=== PATIENT | female | born 1960 | race Caucasian/White ===

== ENCOUNTER 2020-08-01 15:13 | Emergency (ER) | payer OTHER, SELFPAY ==
[2020-08-01 15:34] VITALS: BP 143/93; PULSE 73; RESP 18; TEMP 36.8; O2SAT 99
--- NOTE | 2020-08-01 15:51 | PC.NURSE ---
pt states her last fever was yesterday and isn't coughing at this time. denies shortness of breath.
--- NOTE | 2020-08-01 16:00 | ED_ITS ---
HPI - URI/Sore Throat General Chief Complaint: Upper Respiratory Symptoms Stated Complaint: positive COVID, has sarcoid, and other auto immu Time Seen by Provider: 08/01/20 16:00 Source: patient Mode of arrival: Ambulatory Limitations: no limitations History of Present Illness HPI Narrative: Patient is a 60-year-old female with history of sarcoidosis who presents as positive COVID patient. She states that she was urged by her children to come to the ER for evaluation. She states that she is on day 5 of her symptoms. She says the fever has. She actually is having improvement of symptoms. She is using an inhaler to help her breathe which she says is working well. She has a home pulse oximeter which he has been monitoring her oxygen levels with. She is currently 99% on room air. Her children are worried for her and they want her to have medicine. She is currently taking vitamin D supplement and a daily aspirin. She states that she does not feel that she needs to be here in the emergency department will want to appease her children MD Complaint: fever Related Data Home Medications Medication Instructions Recorded Confirmed asmathax INHALATION 07/17/18 07/17/18 cyclosporine 0.05 % eye drops in a EYE-BOTH each 07/17/18 07/17/18 dropperette metoprolol succinate 25 mg 25 mg PO DAILY 07/17/18 07/17/18 tablet,extended release 24 hr simvastatin PO 07/17/18 07/17/18 Allergies Allergy/AdvReac Type Severity Reaction Status Date / Time bacitracin Allergy Unknown Verified 07/17/18 16:45 [From NEOSPORIN ([id number])] neomycin Allergy Unknown Verified 07/17/18 16:45 [From NEOSPORIN ([id number])] polymyxin B Allergy Unknown Verified 07/17/18 16:45 [From NEOSPORIN ([id number])] Review of Systems Review of Systems Narrative: GENERAL: Denies chills, fatigue, malaise, fever, sweats, travel HEENT: Denies sinus pain, ear pain, sore throat, difficulty swallowing, neck pain RESPIRATORY: See HPI CARDIOVASCULAR: Denies chest pain, palpitations, orthopnea, edema GASTROINTESTINAL: Denies nausea, vomiting, abdominal pain, diarrhea, constipation, melena. : Denies dysuria, frequency, incontinence, hematuria, urinary retention, flank pain. MUSCULOSKELETAL: Denies weakness, joint pain, or bony pain SKIN: No rash, no erythema, no pruritus NEUROLOGIC: Denies weakness, dizziness, headache, numbness, change in speech, confusion PSYCHIATRIC: No concerning psychosocial issues. 12 point review of systems is negative except for those stated above and HPI Patient History Social History Smoking Status: Never smoker alcohol intake: current (occasionally) Smoking Status: Never smoker Substance Use Type: does not use Exam Initial Vital Signs Initial Vital Signs: Vital Signs Temperature 98.3 F 08/01/20 15:34 Pulse Rate 73 08/01/20 15:34 Respiratory Rate 18 08/01/20 15:34 Blood Pressure 143/93 H 08/01/20 15:34 Pulse Oximetry 99 08/01/20 15:34 GENERAL: Well-appearing, well-nourished and in no acute distress. HEENT: Head atraumatic,EOMI, pupils reactive, face symmetric, moist mucous mem branes CARDIOVASCULAR: Regular rate and rhythm without murmurs, rubs or gallops. RESPIRATORY: Breath sounds equal bilaterally, no wheezes rales or rhonchi. EXTREMITIES: Normal range of motion, no clubbing or edema. Neurovascularly intact NEUROLOGICAL: Alert and oriented x4.Normal gait and speech SKIN: Warm, dry, no laceration, no petechiae, no rashes or lesions. Course Vital Signs Vital signs: Vital Signs - 8 hr 08/01/20 15:34 Temperature 98.3 F Pulse Rate 73 Respiratory Rate 18 Blood Pressure 143/93 H Pulse Oximetry 99 MDM - URI/Sore Throat MDM Narrative Medical decision making narrative: The patient is overall feeling well her O2 is 99%. She is on day 5. She does have sarcoidosis but but the inhaler seems to help whenever she has any shortness of. She has at all the things at home including home pulse oximeter and she has been using it. At this time she seems to be well informed and following the instructions. She understands when to return to the ED he and I trust that she well Discharge Plan Departure Patient Disposition: Home Clinical Impression: COVID-19 Instructions: DI for COVID-19 (Suspected or Confirmed ) Activity Restrictions/Additional Instructions: *You have been diagnosed with COVID-19 *What to do: At this time no indication to stay in the hospital. Please continue to monitor your home oxygen with a pulse ox. Please use spots checking sometimes oxygen levels drop without You knowing *Continue to take medications as directed Continue supplements of vitamin-D and aspirin *Follow up with your primary care provider in 2-3 days *Return to ER if you should have oxygen levels less than 88%, increase no shortness of breath, or any new, worsening or concerning symptoms CDC Guidelines for home isolation: - Stay away from others - Limit contact with pets and animals: If you must care for a pet, wash your hands before and after interacting with them - Wear a mask if you are sick - Cover your mouth and nose with a tissue when you cough or sneeze. Dispose of tissues in a lined trash can and wash your hands immediately with soap and water for at least 20 seconds. If soap and water are not available, clean hands with alcohol-based hand pathology secretary that contains at least 60% alcohol. - Clean your hands often with soap and water for at least 20 seconds - Avoid touching your eyes, nose and mouth with unwashed hands - Do not share dishes, drinking glasses, cups, eating utensils, towels, or bedding with other people in your home. After using these items, wash them thoroughly with soap and water or put in the head banquet waiter/waitress. - Clean high-touch surfaces in your isolation area (?sick room? and bathroom) every day; let a caregiver clean and disinfect high-touch surfaces in other areas of the home. Clean the area or item with soap and water or another detergent if it is dirty. Then, use a household disinfectant. Seek medical attention, but call first: - Seek medical care right away if your illness is worsening (for example, if you have difficulty breathing). - Call your doctor before going in: Before going to the doctor?s office or emergency room, call ahead and tell them your symptoms. They will tell you what to do. - If possible, put on a facemask before you enter the building. If you can?t put on a facemask, try to keep a safe distance from other people (at least 6 feet away). This will help protect the people in the office or waiting room. - Follow care instructions from your healthcare provider and local health department: Your local health authorities will give instructions on checking your symptoms and reporting information. Emergency warning signs for COVID-19: - Difficulty breathing or shortness of breath - Persistent pain or pressure in the chest - New confusion or inability to arouse - Bluish lips or face Prescriptions: No Action metoprolol succinate [Toprol XL] 25 mg tablet extended release 24 hr 25 mg PO DAILY RF: 0 simvastatin PO RF: 0 cyclosporine [Restasis] 0.05 % dropperette EYE-BOTH RF: 0 asmathax INHALATION RF: 0
== END 2020-08-01 16:11 | disposition home or self-care (01) ==
PROVIDERS: Emergency Provider Emergency Medicine
DX: U07.1 COVID-19 (principal); D86.9 Sarcoidosis, unspecified
CPT/HCPCS: 99281

== ENCOUNTER → 2021-07-26 17:52 | Outpatient (CLI) | payer OTHER, SELFPAY ==
[2021-07-26 18:52] LABS: COVID19 -Nasal RAPID Negative (Negative)
== END ==
PROVIDERS: Referring Provider Physician Assistant; Visit Provider Physician Assistant
DX: Z20.822 Contact with and (suspected) exposure to COVID-19 (principal)
CPT/HCPCS: 87635

== ENCOUNTER 2025-01-16 12:06 | Emergency (ER) | payer OTHER, SELFPAY ==
[2025-01-16 12:21] VITALS: BP 135/81; PULSE 81; RESP 18; TEMP 37; O2SAT 98; BMI 31.6
--- NOTE | 2025-01-16 16:40 | ED.WOUNDLAC ---
HPI - Wound/Laceration General Chief Complaint: Wound/Laceration Stated Complaint: right hand laceration Time Seen by Provider: 01/16/25 16:26 Source: patient Mode of arrival: Ambulatory History of Present Illness HPI narrative: 64-year-old female presents with laceration to right hand after accidentally stabbed herself with a steak knife. Tetanus is not recently updated, she thinks has been greater than 5 years. No paresthesias. Has a slight amount of pain but bleeding has stopped. Affects the webspace between the 1st and 2nd fingers. No other complaints or concerns. Related Data Home Medications ?Medication ?Instructions ?Recorded ?Confirmed asmathax inhalation 07/17/18 07/26/21 cyclosporine 0.05 % eye drops in a EYE-BOTH 07/17/18 07/26/21 dropperette (Restasis) metoprolol succinate 25 mg 25 mg PO DAILY 07/17/18 07/26/21 tablet,extended release 24 hr (Toprol XL) simvastatin PO 07/17/18 07/26/21 Allergies Allergy/AdvReac Type Severity Reaction Status Date / Time bacitracin (From NEOSPORIN Allergy Unknown Anaphylaxis Verified 01/16/25 12:21 ([id number])) neomycin (From NEOSPORIN Allergy Unknown Anaphylaxis Verified 01/16/25 12:21 ([id number])) polymyxin B (From NEOSPORIN Allergy Unknown Anaphylaxis Verified 01/16/25 12:21 ([id number])) Review of Systems Review of Systems Narrative: Pertinent ROS obtained and negative except as stated in HPI Patient History Social History alcohol intake: current (occasionally) Exam Initial Vital Signs Initial Vital Signs: Vital Signs Temperature 98.6 F 01/16/25 12:21 Pulse Rate 81 01/16/25 12:21 Respiratory Rate 18 01/16/25 12:21 Blood Pressure 135/81 01/16/25 12:21 Pulse Oximetry 98 01/16/25 12:21 Oxygen Delivery Method Room Air 01/16/25 12:21 Const Other: 64-year-old female resting comfortably in the chair, no acute distress Skin Other: 0.75 cm laceration in the webspace between the 1st and 2nd digit. It is approximately 5 mm deep. Non gaping. Hemostatic. Patient has no bony tenderness over the metacarpals or phalanges. She is well-perfused in the fingers is normal capillary refill. Normal sensation to light touch in the median ulnar radial nerve distribution. Normal strength of the hand with making a fist, thumbs-up, okay sign, spreading fingers apart Procedures Laceration Repair Laceration 1: Local Anesthetic: other anesthetic Skin layer closed with: nylon Skin layer suture size: 5-0 Number of sutures: 1 Technique: simple, interrupted Course Orders Ordered: Discontinued Medications Diphtheria/Tetanus/Acell Pertussis (Tet,Diph,Pertuss(Acell),Vac/Pf 0.5 Ml Syringe) 0.5 ml IM .ONCE ONE Stop: 01/16/25 16:40 Last Admin: 01/16/25 16:52 Dose: 0.5 ml Documented By: LEANDER Lidocaine HCl (Lidocaine 2% (Glydo) 6 Ml Gel) 6 ml TOP NOW ONE Stop: 01/16/25 16:46 Last Admin: 01/16/25 16:53 Dose: Not Given Documented By: LEANDER Lidocaine/Prilocaine (Lidocaine/Prilocaine 30 Gm) 1 applic TOP NOW ONE Stop: 01/16/25 16:44 Last Admin: 01/16/25 16:55 Dose: Not Given Documented By: LEANDER Lidocaine/Prilocaine (Lidocaine/Prilocaine 5 Gm) 5 gm TOP NOW ONE Stop: 01/16/25 16:46 Last Admin: 01/16/25 16:50 Dose: 5 gm Documented By: LEANDER Vital Signs Vital signs: Vital Signs - 8 hr 01/16/25 12:21 Temperature 98.6 F Pulse Rate 81 Respiratory Rate 18 Blood Pressure 135/81 Pulse Oximetry 98 Oxygen Delivery Method Room Air MDM - Wound/Laceration MDM Narrative Medical decision making narrative: Pt presents with simple laceration to right hand as described above. It is repaired per procedure note. Tetanus is updated. No apparent neurovascular deficit as a result of injury nor would I expect one based on location. Counseled pt on wound care at home. She is instructed to have suture removed in 7 days by provider. Return precautions discussed and provided prior to discharge. Discharge Plan Departure Patient Disposition: Home Clinical Impression: Laceration Instructions: DI for Laceration Repair Activity Restrictions/Additional Instructions: Cleanse wound daily with warm soapy running water. Do not submerge the wound in standing water such as in a bath. Some people would choose to apply bacitracin or topical antibiotic to the area and cover with a Band-Aid while out in about, otherwise, the wound does not absolutely need to be covered Monitor for signs infection and return if you notice these: Redness, pain, swelling, discharge, fever Sutures should be removed by clinician in 7 days. Prescriptions: No Action metoprolol succinate [Toprol XL] 25 mg tablet extended release 24 hr 25 mg PO DAILY simvastatin PO cyclosporine [Restasis] 0.05 % dropperette EYE-BOTH asmathax INHALATION Referrals: Miscellaneous,Doctor, MD [Primary Care Provider, Medical] Stand Alone Forms: Patient Portal/API
[2025-01-16] MEDS: LIDOCAINE/PRILOCAINE 5 GM TOP (16:50)
[2025-01-16] MEDS: TET,DIPH,PERTUSS(ACELL),VAC/PF 0.5 ML SYRINGE IM (16:52)
[2025-01-16 17:17] VITALS: BP 156/87; PULSE 70; RESP 18; O2SAT 98
--- NOTE | 2025-05-04 14:41 | PM.PROC.1 ---
Procedures Date/Time Date of procedure: 01/16/25 Time of procedure: 16:40 Laceration Technique: other (0.75 cm laceration repaired per procedure note.)
== END 2025-01-16 17:17 | disposition home or self-care (01) ==
PROVIDERS: Emergency Provider Student in an Organized Health Care Education/Training Program
DX: S61.411A Laceration without foreign body of right hand, initial encounter (principal); W26.0XXA Contact with knife, initial encounter; Z23 Encounter for immunization
CPT/HCPCS: 12001; 90471; 99283; 90715